=== PATIENT | female | born 1955 | race African-American/Black ===

== ENCOUNTER → 2016-12-11 | Outpatient (CLI) | payer OTHER ==
[~2016-12-11] MED LIST: AMLODIPINE BESY10 MG PO; ATIVAN PO; AUGMENTIN PO; CELEBREX; FLEXERIL PO; HAIR VITAMIN PO; IBUPROFEN PO; LEXAPRO PO; LISINOPRIL PO; METOPROLOL SUCC50 MG PO; MULTIPLE VITAMI1 T11 PO; NAPROSYN375 MG PO; NEURONTIN PO; NORCO 10/325 TA1 TAB PO; NORCO 10/3251 TAB PO; ROBAXIN PO; TIZANIDINE HCL4 M1 PO
--- NOTE | ~2016-12-11 | MY29 ---
[facility] A Service of [facility] RADIOLOGY TEXT RESULTS PATIENT: HELENA ONEILL LOCATION: [facility] : 55 UNIT #: [id number] AGE: [address]: Pauline Talamantes MD SEX: F ORDER DR: [id number] [facility] [address] [place], [place] [address] [id number] O MR#: [id number] #: [id number] NAME: HELENA ONEILL : 1955 SEX: F STUDY DATE/TIME: 12/11/2016 14:26 UNIT: [facility] ROOM: STUDY DESCRIPTION: MY GERHARD SCREENING W/ CAD BILAT Attending Physician: Pauline Talamantes M.D. Referring Physician: Pauline Talamantes M.D. Ordering Physician: Pauline Talamantes M.D. Primary Care Physician: Pauline Talamantes M.D. MEDICAL IMAGING REPORT This report is preliminary unless electronic signature is present EXAM Digital screening mammogram, 12/11/2016 HISTORY 61-year-old woman no risk elevation. Annual screening. COMPARISON Mammograms date to 03/19/2013 with most recent 09/10/2015. FINDINGS Digital imaging of each breast was completed utilizing screening protocol. Review includes FDA-approved CAD device. Breast parenchyma remains moderately dense with residual fibronodular opacities in each breast. I see no suspicious mass characteristics. There are no interval occurring microcalcifications and no suspicious architectural deformity. IMPRESSION Benign mammogram. Annual screening recommended. Patients over the age of 40 are entered into a reminder system with target due date for the next mammogram. A result letter will also be sent to the patient. BIRADS: 2 Benign Finding Dictated by... Elmer Muir M.D. THIS IS AN ELECTRONICALLY VERIFIED REPORT Elmer Muir M.D. at 12/12/2016 8:58 AM Gregg TD: 12/12/2016 08:04 [facility] A Service of [facility] RADIOLOGY TEXT RESULTS PATIENT: HELENA ONEILL LOCATION: [facility] : 55 UNIT #: [id number] AGE: [address]: Pauline Talamantes MD SEX: F ORDER DR: JOB #: [id number] MEDICAL IMAGING REPORT Page 1 of 1 COPY
== END | disposition home or self-care (01) ==
LOC: CWCC 11:30
DX: Z12.31 Encounter for screening mammogram for malignant neoplasm of breast (principal)
CPT/HCPCS: G0202